=== PATIENT | female | born 2000 | race Caucasian/White ===

== ENCOUNTER 2024-11-14 22:54 | Emergency (ER) | payer OTHER, SELFPAY ==
[2024-11-14 23:00] VITALS: BP 135/78; PULSE 81; RESP 20; TEMP 36.4; O2SAT 98; BMI 20.8
[2024-11-14 23:23] LABS: MANUAL DIFF FLAG NO
[2024-11-14 23:24] LABS: Basophils Percent Auto 0.3 % (0-2); Eosinophils Absolute Auto 0.1 X10*3/uL (0.0-0.4); Eosinophils Percent Auto 0.9 % (0-4); Hematocrit 37.9 % (37.0-47.0); Hemoglobin 13.3 g/dl (12.0-16.0); Imm Gran Abs Auto 0.03 X10*3/uL (0.00-0.03); Imm Gran Pct Auto 0.3 % (0.0-0.4); Lymphocytes Absolute Auto 1.3 X10*3/uL (1.2-4.9); Lymphocytes Percent Auto 12.3 % (20-40); Mean Corpuscular HGB Conc 35.1 g/dl (31.0-35.0); Mean Corpuscular Hemoglobin 30.6 pg (27.0-33.0); Mean Corpuscular Volume 87.1 fL (80.0-98.0); Monocytes Absolute Auto 0.5 X10*3/uL (0.1-1.2); Monocytes Percent Auto 4.4 % (2-11); Neutrophils Absolute Auto 8.8 x10*3/uL (2.0-8.3); Neutrophils Percent Auto 81.8 % (45-73); Platelet Count 252 X10*3/uL (160-400); Red Blood Count 4.35 X10*6/uL (4.20-5.50); Red Cell Distribution Width 11.6 % (11.0-16.0); White Blood Count 10.7 X10*3/uL (4.8-10.8)
[2024-11-14 23:25] LABS: Appearance Urine Turbid; Color Urine Yellow; Glucose Urine UA Negative (Negative); Leukocyte Esterase Urine Moderate (2+) (Negative); Nitrite Urine Negative (Negative); PH >= 9.0 (5.0-9.0); UMIC TRIGGER UACC YES; Urine Blood Negative (Negative); Urine Ketones 80 mg/dL (Negative); Urine Protein 30 (1+) mg/dL (Neg-Trace)
[2024-11-14 23:34] LABS: Anion Gap 15 (12-20)
[2024-11-14 23:36] LABS: Amphetamine Screen Urine Not Detected (Not Detect); Barbiturates, Urine Not Detected (Not Detect); Benzodiazepines Screen Urine Not Detected (Not Detect); Buprenorphine Scr Not Detected (Not Detect); Cannabinoid Screen Urine POSITIVE (Not Detect); Cocaine Screen Urine Not Detected (Not Detect); Fentanyl, urine Not Detected (Not Detect); Methadone Screen, Urine Not Detected (Not Detect); Opiate Screen Urine Not Detected (Not Detect); Oxycodone Screen Urine Not Detected (Not Detect); Phencyclidine Screen Urine Not Detected (Not Detect)
[2024-11-14 23:37] LABS: Bacteria Urine 3+ (None Seen); Hyaline Casts Urine 0-2 /LPF (0-2); UACC Culture Trigger YES; WBC Urine >50 /HPF (0-5)
[2024-11-14 23:46] LABS: Alanine Aminotransferase 33 U/L (0-31); Albumin Level 4.8 g/dL (3.5-5.0); Alkaline Phosphatase 41 U/L (39-117); Aspartate Amino Transferase 27 U/L (5-31); Bilirubin Total 0.8 mg/dL (0.0-1.0); Blood Urea Nitrogen 6 mg/dL (9-16); Calcium 9.5 mg/dL (8.4-10.2); Carbon Dioxide 20 mmol/L (22-29); Chloride 107 mmol/L (96-108); Creatinine Clr Calc Pharmacy 95.1; Estimated Glomerular Filt Rate > 60; Ethanol < 10 mg/dL; Glucose Random 123 mg/dL (60-115); HCG Quantitative < 2 mIU/mL; Lipase 9 U/L (8-78); Magnesium 2.1 mg/dL (1.6-2.6); Potassium 3.8 mmol/L (3.3-5.1); Sodium 138 mmol/L (135-145); Total Protein 7.4 g/dL (6.5-8.0)
--- NOTE | 2024-11-15 00:04 | ED_ITS ---
HPI - General Adult General Chief complaint: Abdominal Pain Stated complaint: axiety/not eating today/hands cramp Time Seen by Provider: 11/14/24 23:26 Source: patient and family Mode of arrival: ambulatory Limitations: no limitations History of Present Illness ED Provider: Dr. Mary Quinones HPI narrative: Patient comes to the emergency room complaining of anxiety. Patient states that starting today, patient started having anxiety. Patient states that she has been having nausea, diarrhea, unable to eat, finger cramping. Patient is here with her mother. According to the mother, every 3-4 months up to every year she has similar episodes of severe anxiety. According to the patient and her mother, patient used to be on Lexapro for anxiety. However, she is no longer on any medications. Patient denies SI or HI. Patient does feel very anxious at this time. Patient has no specific triggers at this time. Related Data Previous Rx's ?Medication ?Instructions ?Recorded lorazepam 1 mg tablet (Ativan) 1 mg PO TID PRN anxiety #15 tabs 11/15/24 Allergies Allergy/AdvReac Type Severity Reaction Status Date / Time No Known Allergies Allergy Verified 11/14/24 23:03 Review of Systems 2 Review of Systems: Constitutional : No Weight loss, No Fever, No Chills, No Night Sweats, No Fatigue, No Malaise ENT/Mouth : No Hearing loss, No Ear Pain, No Nasal Congestion, No Sinus Pain, No Hoarseness, No sore throat, No Rhinorrhea, No Swallowing Difficulty Eyes: No Eye Pain, No Swelling, No Redness, No Foreign Body, No Discharge, No Vision Changes Cardiovascular : No Chest Pain, No SOB, No Dyspnea on Exertion, No Orthopnea, No Edema, No Palpitations Respiratory : No Cough, No Sputum, No Wheezing, No Smoke Exposure, No Dyspnea Gastrointestinal : Complaining of nausea vomiting and diarrhea secondary to severe anxiety,, No Constipation, No abdominal Pain, No Hematochezia, No Melena Genitourinary : no irregular bleeding, No Dysuria, No Urinary Frequency, No Hematuria, No Urinary Incontinence, No Urgency, No Flank Pain, No Urinary Flow Changes, No Hesitancy Musculoskeletal : No joint pain, No Myalgias, No Joint Swelling Skin : No Skin Lesions, No rash Neuro : No Weakness, No Numbness, No Paresthesias, No Loss of Consciousness, No Dizziness, No Headache Psych : Complaining of anxiety, denies depression, denies SI or HI Heme/Lymph: No Bruising, No Bleeding,No Lymphadenopathy Endocrine : No Polyuria, No Polydipsia, No Temperature Intolerance [facility] Social History Social History Smoked in Last 30 Days: No Use of substances other than those prescribed or required for medical reasons: Yes Substance Use Type: Marijuana Advance Directives: No Advance Directives Information Provided: Yes Do you have a plan to hurt others: No Plan Patient : No Physical Exam ED Vital Signs: Vital Signs - 24 hr 11/14/24 23:00 11/15/24 00:12 11/15/24 02:23 Temperature 97.5 F 98 F 98 F Pulse Rate 81 62 70 Respiratory Rate 20 16 16 Blood Pressure 135/78 121/86 125/80 Pulse Oximetry 98 99 97 Oxygen Delivery Method Room Air Room Air Room Air 11/15/24 06:29 11/15/24 08:06 Temperature 97.8 F 98.1 F Pulse Rate 83 87 Respiratory Rate 16 16 Blood Pressure 117/76 105/67 Pulse Oximetry 99 98 Oxygen Delivery Method Room Air Room Air BMI result Body Mass Index 20.8 Const Other: Appearance: Alert. Oriented X3. No acute distress. Eyes: Pupils equal, round and reactive to light. ENT: Pharynx normal. Neck: Normal inspection. Neck supple. No lymph nodes noted. No crepitus CVS: Normal heart rate and rhythm. Pulses normal. Normal S1 and S2 Respiratory: No respiratory distress. Breath sounds normal. No Wheezing. No rales Abdomen: Soft and nontender. No rigidity. No distention. Skin: Skin warm and dry. Normal skin color. Normal skin turgor. Extremities: No lower extremity edema. No Lacerations. No Rash Neuro: Oriented X 3. No motor deficit. No sensory deficit. Moving all extremities. No slurred speech. CN 2 through 12 grossly intact Psych: calm, cooperative, anxious Course Course Course Narrative: Patient was giving IV fluids, loperamide, Zofran, Ativan All of patient's labs pending Discussed with the patient that once medically cleared, she can be seen by the care team, patient and her mother agree with plan. They are aware that the care team is not here tonight than the evaluation will be done in the morning, at least 8 hours from now. Time: 11:17 Date: 11/15/24 Provider: Artem Velez MD Physician observation ended at 11:17 hours. Patient was evaluated by the care team today. I did speak to the care team counselor and she gave me the following information. The patient does have a history of anxiety and is not currently taking any medications. The patient had a severe panic attack which she described as her worse panic attack ever. The patient denied being suicidal or homicidal. I did talk to the patient. She states that she had been on Lexapro, trazodone, Abilify and Ativan in the past when she was younger but he was not been on these medications for years. She states that she had suicidal ideations in the past but never acted on them. She denies being suicidal or homicidal at this time. The patient is here with her mother and the patient states she feels safe going home and her mother agrees with this plan. Patient did receive lorazepam orally while she was here in the emergency department . I ordered lorazepam 1 mg orally prior to discharge. Patient was given a prescription for lorazepam 1 mg TID PRN anxiety with no refills dispense 15 tablets. She was given printed and verbal instructions and discharged home. Reevaluation(s) Time: 11:13 Medications Administered Discontinued Medications Generic Name Dose Route Start Last Admin Trade Name Freq PRN Reason Stop Dose Admin Sodium Chloride 1,000 mls @ 999 mls/hr 11/15/24 00:05 11/15/24 01:30 Ns IVCONT 11/15/24 01:05 Infused .Q1H1M ONE Infusion Loperamide HCl 2 mg 11/15/24 00:05 11/15/24 00:22 Loperamide Hcl 2 Mg Capsule PO 11/15/24 00:06 2 mg ONCE ONE Administration Lorazepam 1 mg 11/15/24 00:05 11/15/24 00:22 Lorazepam 1 Mg Tablet PO 11/15/24 00:06 1 mg ONCE ONE Administration Ondansetron HCl 4 mg 11/15/24 00:05 11/15/24 00:22 Ondansetron Hcl 4 Mg/2 Ml Vial IVPUSH 11/15/24 00:06 4 mg ONCE ONE Administration Medical Decision Making Medical Decision Making MDM Narrative: My interpretation of labs: No significant abnormality in patient's hematology, chemistry within normal limits, LFTs normal, lipase normal, hCG negative. Urinalysis shows a moderate amount of leukocyte esterase, white blood cells and a high amount of squamous epithelial cells. Urinalysis negative for drugs other than THC, negative ETOH Care team consult pending Physician observation started at 00:06 Differential Diagnosis Differential Diagnoses: The differential diagnosis associated with the presentation includes (Anxiety, depression, polysubstance abuse) Admission/Observation Consideration of admission/observation: Escalation of care including admission/observation considered (Patient will be under observation waiting to be seen by the care team tomorrow morning. Patient may need partial hospitalization) Lab Data 11/14/24 23:13 11/14/24 23:13 Labs: Lab Results 11/14/24 11/14/24 11/14/24 Range/Units 23:13 23:14 23:17 WBC 10.7 (4.8-10.8) X10*3/uL RBC 4.35 (4.20-5.50) X10*6/uL Hgb 13.3 (12.0-16.0) g/dl Hct 37.9 (37.0-47.0) % MCV 87.1 (80.0-98.0) fL MCH 30.6 (27.0-33.0) pg MCHC 35.1 H (31.0-35.0) g/dl RDW 11.6 (11.0-16.0) % Plt Count 252 (160-400) X10*3/uL MPV 9.0 L (9.4-12.3) fL Immature Gran % (Auto) 0.3 (0.0-0.4) % Neut % (Auto) 81.8 H (45-73) % Lymph % (Auto) 12.3 L (20-40) % Brooks % (Auto) 4.4 (2-11) % Eos % (Auto) 0.9 (0-4) % Baso % (Auto) 0.3 (0-2) % Lymph # (Auto) 1.3 (1.2-4.9) X10*3/uL Brooks # (Auto) 0.5 (0.1-1.2) X10*3/uL Eos # (Auto) 0.1 (0.0-0.4) X10*3/uL Baso # (Auto) 0.0 (0.0-0.2) X10*3/uL Abs Immat Gran (auto) 0.03 (0.00-0.03) X10*3/uL Absolute Neuts (auto) 8.8 H (2.0-8.3) x10*3/uL Absolute Nucleated RBC 0.000 (0.0-0.012) X10*3/uL Nucleated RBC % (auto) 0.0 (0.0-0.2) /100WBC Sodium 138 (135-145) mmol/L Potassium 3.8 (3.3-5.1) mmol/L Chloride 107 (96-108) mmol/L Carbon Dioxide 20 L (22-29) mmol/L Anion Gap 15 (12-20) BUN 6 L (9-16) mg/dL Creatinine 0.70 (0.5-1.4) mg/dL Estim Creat Clear Calc 95.1 Estimated GFR > 60 Random Glucose 123 H (60-115) mg/dL Calcium 9.5 (8.4-10.2) mg/dL Magnesium 2.1 (1.6-2.6) mg/dL Total Bilirubin 0.8 (0.0-1.0) mg/dL AST 27 (5-31) U/L ALT 33 H (0-31) U/L Alkaline Phosphatase 41 (39-117) U/L Total Protein 7.4 (6.5-8.0) g/dL Albumin 4.8 (3.5-5.0) g/dL Lipase 9 (8-78) U/L Beta HCG, Quant < 2 mIU/mL Urine Color Yellow Urine Appearance Turbid Urine pH >= 9.0 (5.0-9.0) Ur Specific [place] 1.020 (1.005-1.025) Urine Protein 30 (1+) H (Neg-Trace) mg/dL Urine Glucose (UA) Negative (Negative) mg/dL Urine Ketones 80 (Negative) mg/dL Urine Blood Negative (Negative) Urine Nitrite Negative (Negative) Ur Leukocyte Esterase Moderate (2+) H (Negative) Urine RBC 3-5 H (0-2) /HPF Urine WBC >50 H (0-5) /HPF Ur Squamous Epith Cells 11-20 (0-2) /HPF Urine Bacteria 3+ (None Seen) Hyaline Casts 0-2 (0-2) /LPF Urine Opiates Screen Not Detected (Not Detect) Ur Buprenorphine Scrn Not Detected (Not Detect) ng/mL Ur Oxycodone Screen Not Detected (Not Detect) ng/mL Urine Methadone Screen Not Detected (Not Detect) ng/mL Urine Fentanyl Screen Not Detected (Not Detect) Ur Barbiturates Screen Not Detected (Not Detect) Ur Phencyclidine Scrn Not Detected (Not Detect) Ur Amphetamines Screen Not Detected (Not Detect) U Benzodiazepines Scrn Not Detected (Not Detect) Urine Cocaine Screen Not Detected (Not Detect) U Marijuana (THC) Screen POSITIVE H (Not Detect) Ethyl Alcohol < 10 mg/dL Critical Care Time Critical Care Time Critical Care Time: Yes Total Critical Care Time: 35 Attestation: I have personally provided critical care time. Time includes review of lab data, radiology results, discussion with consultants, and monitoring for potential decompensation. Intervention performed as documented. Discharge Plan Discharge Clinical Impression: Anxiety, Nausea vomiting and diarrhea, Panic attack Patient Disposition: Home, Self-Care Instructions: Panic Disorder (ED), Anxiety (ED) Additional Instructions: You were seen by the care team counselor, Delmis, who felt that you would benefit from evaluation by a prescribing provider at the [facility]. She told me that she was going to reach out to with the [facility] and see if she can help facilitate you getting an appointment with a prescribing provider. Please call them tomorrow at the number below to see if you can also getting an appointment. Take Ativan 1 mg pills, 1 pill every 6 hours as needed for anxiety. ?This medication will make you sleepy, do not drive or work while taking this medication. ?This medication can be addicting, if your concerned about addiction you can ask the pharmacist for less medications or do not get the prescription filled. You were seen in our Emergency Department today for treatment of a behavioral health issue. It is important after your visit that you follow up with either your behavioral health provider or a primary care doctor within 7 days.? If you have trouble finding a therapist you can reach out to [address] [phone] The National Suicide and Crisis Lifeline can be reached 7 days a week 24 hours a day.? Call 473 to speak with someone.? Return for any worsening symptoms or concerns such as thoughts of self harm or harm to others. Please call 911 if you feel your mental health is worsening.? Prescriptions: New lorazepam [Ativan] 1 mg tablet 1 mg PO TID PRN (Reason: anxiety) Qty: 15 0RF Rx Instructions: Patient may request partial fill Print Language: Albanian
[2024-11-15 00:12] VITALS: BP 121/86; PULSE 62; RESP 16; TEMP 36.6; O2SAT 99
[2024-11-15] MEDS: LORazepam 1 MG TABLET PO ×2 (00:22→11:22)
[2024-11-15] MEDS: Loperamide HCl 2 MG CAPSULE PO (00:22)
[2024-11-15] MEDS: ondansetron HCL 4 MG/2 ML VIAL IVPUSH (00:22)
[2024-11-15] MEDS: 0.9 % Sodium Chloride 1,000 ML 999 ML IVCONT (00:22)
[2024-11-15 02:23] VITALS: BP 125/80; PULSE 70; RESP 16; TEMP 36.6; O2SAT 97
--- NOTE | 2024-11-15 03:36 | PC.NURSE ---
per cupola charger insulation pt does not need to have belongings secured as pt is only reporting anxiety. pt continues to deny si/hi. pt changed into hospital attire 20g iv in r ac for ivf
--- NOTE | 2024-11-15 06:22 | PC.NURSE ---
pt continues to deny si/hi calm and cooperative resting while awaiting care team consult
[2024-11-15 06:29] VITALS: BP 117/76; PULSE 83; RESP 16; TEMP 36.6; O2SAT 99
--- NOTE | 2024-11-15 07:23 | MHC.EDTECH ---
Patient given breakfast tray
[2024-11-15 08:06] VITALS: BP 105/67; PULSE 87; RESP 16; TEMP 36.7; O2SAT 98
--- NOTE | 2024-11-15 10:54 | PC.NURSE ---
Care Team at bedside to eval.
--- NOTE | 2024-11-15 11:12 | HO.CARDTECH ---
Assessment: Jeannette arrived to [facility] on 11/14/24 secondary to abdominal pain and s/p anxiety. Bisi was assessed by the ED doctor and referred to the CARE team for acute anxiety. Engineering Specialist met with Jeannette, today, 11/15/24. She was accompanied by her mother. Bisi acknowledged acute, physiological symptoms influenced by anxiety last evening into the morning hours. I feel better now . Symptoms consisted of numbness and tingling in her hands, discomfort and pain when she moved her hands, shock-like sensations abdominal pain and vomiting. Jeannette, along with her mother, acknowledged a history of acute anxiety manifesting in physical symptoms. Jeannette remarked it occurs nearly 8-10 times a year, however it has never been this extreme . She acknowledged compromised appetite leading up to her panic attack yesterday. No specific triggers or causes were determined. Jeannette and her mom acknowledged a history of anxiety and depression, beginning when Jeannette was 16yo following the of her father. Jeannette's mother acknowledged signs/early onset of anxiety when she was just 7 years old comprised of frequent hair pulling. Jeannette reported a history of anxiety also influenced by a former relationship. I had been doing better lately, until this happened . She reported a time, back in 2020, where her anxiety was exacerbated by school related news. I couldn't stop vomiting . She reported a distant history of suicidal thinking and she disclosed that currently receives outpatient therapy to help manage mental health symptoms. I am not depressed. I have a will to live and I have great support . Jeannette and her mom confirmed a history of taking medication for anxiety and depression, however they admit that when Jeannette starts to feel better she discontinues the medication all together. Both Jeannette and her mother's thoughts aligned when they advocated for ongoing medication management. even if it's just a PRN . According to Jeannette, she has been on the wait list for a psychiaitrist at [facility], where she sees her therapist, Vanessa Guzman. She denied having a PCP at this time, as her primary care doctor recently left the practice. Jeannette offered permission so that this verse writer can reach out to [facility] central intake to inquire about a prioritized medical evaluation. She and her mother were in support of this plan, in addition to additional information provided. offered several local agencies and resources. Engineering Specialist suggested that Jeannette and her mom utilize [facility] services (walk in times) in the event that her symptoms continue and [facility] cannot accommodate her. Engineering Specialist also suggested she utilize crisis and/or emergency services in the event that she were to decompensate and becomes distressed. According to Jeannette's mom, she and Jeannette are very insightful when it comes to recognizing warning signs and reaching out for help. Jeannette completed a safety plan (in chart). She identified several protective factors, strengths and goals. She also reported that after years of therapy, beginning when she was 16 years old, she has acquired and is able to implement healthy coping skills into her day-day life. I have a lot of them. I have done a lot of work . Jeannette's mom agreed, and she verbalized a sense of pride and kuldeep when it came to her daughter's resilience and motivation. Fear of uncertainty, however hopeful and future oriented. Plan: Collaborate with [facility] central intake via email to request prioritized and immediate medication evaluation due to a history of medication being effective and helpful. Utilize coping skills such as music, crosswords, relaxation techniques with her mother present, breathing techniques and sudoku. Consider limiting certain engagements and stressors; preventative meeasures. Utilize local agencies to inquire about medication management Assessed with Dr. Velez Authored by: Delmis Mena [facility]
[2024-11-15 11:23] VITALS: BP 115/72; PULSE 105; RESP 16; O2SAT 98
[2024-11-15 11:34] VITALS: BP 115/72; PULSE 105; RESP 16; TEMP 36.8; O2SAT 98
== END 2024-11-15 11:34 | disposition home or self-care (01) ==
PROVIDERS: Emergency Medicine; Emergency Provider Emergency Medicine Emergency Medical Services; PCP Nurse Practitioner Family
DX: F41.0 Panic disorder [episodic paroxysmal anxiety] (principal); F41.9 Anxiety disorder, unspecified; R11.2 Nausea with vomiting, unspecified; R19.7 Diarrhea, unspecified
CPT/HCPCS: 36415; 80053; 80307; 81001; 83690; 83735; 84702; 85025; 87086; 96361; 96374; 99284; 99285; J2405